=== PATIENT | male | born 1990 | race Caucasian/White ===

== ENCOUNTER 2019-06-14 09:44 | Emergency (ER) | payer BC, SELFPAY ==
[2019-06-14 09:45] VITALS: BP 138/74; PULSE 103; RESP 18; TEMP 36.4; O2SAT 98; BMI 26.1
--- NOTE | 2019-06-14 10:05 | RAD_ITS ---
STUDY: X-RAY - LEFT ANKLE REASON FOR EXAM: Male, 29 years old. Swelling following a twisting injury. TECHNIQUE: 3 view(s) of the ankle. COMPARISON: None. FINDINGS: Normal visualized distal tibia and fibula. Normal medial and lateral malleoli. Normal tibiotalar articulation and ankle mortise. Normal visualized talus and calcaneus. The visualized subtalar, talonavicular, calcaneocuboid and tarsal articulations are normal. Marked degree of soft tissue swelling overlying the lateral malleolus. RAD/Ankle min 3 Views IMPRESSION: Marked degree of soft tissue swelling overlying the lateral malleolus. Electronically Signed: Julio Cesar Rabago, at 10:43 EST , Service support ,
--- NOTE | 2019-06-14 10:05 | RAD_ITS ---
STUDY: X-RAY - LEFT FOOT CLINICAL: Male, 29 years old. Swelling following a twisting injury. TECHNIQUE: 3 view(s) of the foot. COMPARISON: None. FINDINGS: Normal talus, calcaneus, and tarsal bones. Normal visualized subtalar, talonavicular, calcaneocuboid, tarsal and tarsometatarsal articulations. Normal metatarsi. Normal metatarsophalangeal joint of the great toe. Normal tibial and fibular sesamoid bones. Normal interphalangeal joint of the great toe. Normal phalanges of the great toe. Normal second through fifth metatarsophalangeal joints. Normal interphalangeal joints and phalanges of the lesser toes. Marked degree of bilateral soft tissue swelling. RAD/Foot min 3 Views IMPRESSION: Marked degree of lateral soft tissue swelling. Electronically Signed: Julio Cesar Rabago, at 10:45 EST , Service support ,
--- NOTE | 2019-06-14 10:06 | ED.VIS.LOWEX ---
History of Present Illness Chief Complaint: Lower Extremity Injury Informant: Patient Occurred: Today Mechanism/Context: Injury, Fall Onset: Today Context: Sudden Onset Timing: Continuous Quality of Pain: Aching Narrative: Patient is a 29-year-old male with history of sprain ankle presenting with left ankle pain. Patient states he was playing basketball about an hour prior to arrival when he came down from a jump shot. When he came down he landed on another player's foot and leg inverted his ankle. He immediately had a lot of swelling and pain. He has not been able to weight-bear since. He has been using crutches that he had at home. He denies any other injuries. He denies hitting his head. He does note that whenever he gets injuries he tends to get very large hematomas and bruises. He is unaware of any family history or personal history of any clotting/bleeding disorders. Past Medical History - Allergies and Home Meds Allergies/Adverse Reactions: Allergies amoxicillin Allergy (Verified 06/14/19 09:47) Rash Penicillins Allergy (Verified 06/14/19 09:47) Rash Primary Care Physician: Paul Dunbar MD [Primary Care Provider] - Past Medical History: None Surgical History: noncontributory Review of Systems General: Denies: Chills, Fever, Sweats Eyes: Denies: Visual changes - bilaterally, Diplopia ENT: Denies: Rhinorrhea, Sore throat Cardiovascular: Denies: Chest pain, Palpitations Respiratory: Denies: Dyspnea, Cough, Dyspnea on exertion Gastrointestinal: Denies: Abdominal pain, Nausea, Vomiting, Diarrhea, Melena, Hematochezia Genitourinary: Denies: Dysuria, Hematuria, Frequency Musculoskeletal: Reports: Swelling, Extremity Pain - left ankle . Denies: Back pain Skin: Denies: Rash, Wounds Neurological: Denies: Headache, Weakness, Numbness Physical Exam Vital Signs/Narrative: Vital Signs Temp Pulse Resp BP Pulse Ox 06/14/19 09:45 97.6 F L 103 H 18 138/74 H 98 Inital Vital Signs reviewed: Yes - Extremity Exam Left Tib Fib: Edema, - - No fibular head tenderness, edema of the distal anterior lower leg. Negative for: Deformity Left Ankle: Edema, Limited ROM, - - Significant soft tissue swelling localized over the lateral malleolus as well as anterior lateral foot, no obvious deformity. Tenderness to palpation diffusely over the lateral aspect. No obvious bony tenderness.. Negative for: Abrasion, Contusion, Deformity Left Foot: Edema, - - Soft tissue swelling and edema as well as early ecchymosis forming over the proximal and lateral foot. Tenderness palpation over this area but no pinpoint tenderness over the head of the fifth metatarsal. Negative for: Contusion, Deformity Diagnostic/Tx/Re-eval Clinical Impression(s) from Imaging Studies Ankle X-Ray 06/14/19 10:05 IMPRESSION: Marked degree of soft tissue swelling overlying the lateral malleolus. Electronically Signed: Julio Cesar Gem, at 10:43 EST , Service support , Foot X-Ray 06/14/19 10:05 IMPRESSION: Marked degree of lateral soft tissue swelling. Electronically Signed: Julio Cesar Rabago, at 10:45 EST , Service support , - Medical Decision Making Patient sustained injury to his left ankle. He has a lot of soft tissues swelling but no obvious bony deformity. X-ray does not show any acute fracture. Likely this is a sprain. Patient has crutches to use. He is placed in a soft wrap for swelling as well as an air stirrup. He is not working until Monday. He is counseled to take NSAIDs as needed for pain and inflammation. He is counseled on rice therapy. He is neurovascular intact. Patient is counseled on signs and symptoms requiring return to the emergency room. Patient verbalizes agreement and understand this plan. Patient discharged home in stable and improved condition. ED Disposition - Plan for ED Patient: Disposition: Home or Assisted Living Diagnosis: Left ankle sprain Instructions: Sprain, Ankle, with X-Ray Prescriptions: Ibuprofen [Motrin] 600 mg PO Q6H PRN PRN #20 tab PRN Reason: Pain/Inflammation Prescription Printed Referrals: Paul Dunbar MD [Primary Care Provider] - Additional Instructions: Continue to rest, elevate the leg and use compression/ice for swelling and pain. If no significant improvement by Monday, follow-up with your primary care doctor. Return if you have significantly worsening symptoms or pain.
[2019-06-14] MEDS: Ibuprofen 600 MG Tablet PO (10:14)
[2019-06-14 11:56] VITALS: BP 129/71; PULSE 80; RESP 16; O2SAT 98
== END 2019-06-14 12:04 | disposition home or self-care (01) ==
PROVIDERS: Emergency Provider Emergency Medicine; Family Provider Family Medicine; PCP Family Medicine
DX: S93.402A Sprain of unspecified ligament of left ankle, initial encounter (principal); X50.1XXA Overexertion from prolonged static or awkward postures, initial encounter; Y93.67 Activity, basketball; Y99.8 Other external cause status
CPT/HCPCS: 73610; 73630; 99282

== ENCOUNTER → 2020-02-11 13:46 | Outpatient (CLI) | payer BC, SELFPAY ==
[2020-02-11 13:41] VITALS: BMI 26.1
--- NOTE | 2020-02-11 13:46 | RAD_ITS ---
STUDY: X-RAY - RIGHT HAND REASON FOR EXAM: Male, 30 years old. RIGHT HAND CONTUSION, PAIN ACROSS MC TECHNIQUE: 3 view(s) of the hand. COMPARISON: None. FINDINGS: Normal radiocarpal articulation. Normal distal radioulnar joint. Normal visualized carpal bones. Normal carpal articulations Normal carpometacarpal articulation of the thumb. Normal second through fifth carpometacarpal joints. Normal metacarpi. Normal metacarpophalangeal joint of the thumb. Normal interphalangeal joint of the thumb. Normal proximal and distal phalanges of the thumb. Normal metacarpophalangeal joints of the second through fifth fingers. Normal proximal and distal interphalangeal joints of the second through fifth fingers. Normal phalanges of the second through fifth fingers. Soft tissue swelling. RAD/Hand Min 3 Views IMPRESSION: Soft tissue swelling. Electronically Signed: Julio Cesar Rabago, at 14:44 EDT , Service support ,
--- NOTE | 2020-02-11 14:14 | RAD_ITS ---
STUDY: X-RAY - RIGHT WRIST REASON FOR EXAM: Male, 30 years old. PAIN LATERAL WRIST, SMASHING INJURY TECHNIQUE: 4 view(s) of the wrist were obtained including a navicular view. COMPARISON: None. FINDINGS: Normal visualized distal radius and ulna. Normal radiocarpal articulation. Normal distal radioulnar articulation. Normal carpal bones. Normal carpal articulations. Normal carpometacarpal articulation of the thumb. Normal second through fifth carpometacarpal articulations. Normal visualized metacarpal bones. The soft tissue structures are unremarkable. RAD/Wrist min 3 Views IMPRESSION: Normal x-ray examination of the wrist. Electronically Signed: Julio Cesar Rabago, at 14:43 EDT , Service support ,
== END ==
PROVIDERS: PCP Family Medicine; Referring Provider Physician Assistant Surgical; Visit Provider Physician Assistant Surgical
DX: S60.221A Contusion of right hand, initial encounter (principal)
CPT/HCPCS: 73110; 73130

== ENCOUNTER 2020-07-31 09:00 | Outpatient (RCR) | payer OTHER, SELFPAY ==
[2020-07-06 09:39] VITALS: BMI 27.6
--- NOTE | 2020-07-10 09:56 | HP.PTEVAL_ITS ---
Patient's Visit Information SERGIO PAREDES is a 30 year old M referred to Physical Therapy by ALEXSANDRA Dye with a diagnosis of R knee pain, strain. Date of Evaluation: 07/10/20 Physical Therapist: Camron Vázquez DPT - Visit Plan Frequency: 3x /Week Duration: 4 Weeks Plan: 1)Start with ROM, including heel slides, manual over pressure, and biking. 2) add in quad, glute, HS isometrics progressing to isokinetics as tolerated. 3)May use Slovak stim to quad to increase activition, or IFC for pain control. 4) Once pain and ROM have improved start to activiating gait progresion and fucntional strengthening in minimal painful enviornments. - Subjective Pt. is here today for his initial evaluation with diagnosis of R knee pain. Initial injury occured on Jun 15 when she slipped on wet leaving on a hill hyper extended his knee. He might have felt a pop. He reports his injury caused a good deal of swelling. Pain does wakin him up and night if he rolls on it. He has been doing a lot less since injury. He is still off work currently. Denies N/T in his LLE. 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 Pt. walks door to door working from 11 to 7 daily. Hobbies- athletics, sports id basketball. Pt. is hopeful to reduce pain in order to get back to all recreational activities without limitations. - Pain Medial R knee Pain Intensity (Out of 10): 4 Pain Intensity Range: 1, 6 Comment: increases with walking. - Objective POSTURE: Pt. wears a knee brace, L sided wt. shifting. Pt. has normal knee positioning in stance, except for his wt. shifting. PALPATION: Pt. is very tender over his MCL and medial joint line. No pain at lateral aspect of his knee. Pt. has some posterior medial knee pain as well. NEURO: Normal sensation throughout. ROM: L knee - 0-1-65deg. increased medial knee pain during flexion and end range extension. MMT: Pt. has marked weakness throughout RLE, He has difficult activiating his quad for a quad set, has ~10deg of extensor lag with attempt with a SLR. GAIT: Pt. ambulates with lacking TKE and minimal knee no knee flexion during swing phase. Pt. has marked antalgic pattern during R stance phase. - Special Tests R Knee Laurent - Meniscus: Positive R Knee Valgus - MCL: Positive Comments: Patient was very gaurded during ACL testing this date, hard to determine - Goals Goal 1:: LTG: Pt. to be I with HEP. Goal Time Frame: 4-6 Weeks Goal 2:: STG: Pt. to sleep throughout the night without increase in symptoms. Goal Time Frame: 2 Weeks Goal 3:: STG: Pt. to have increased R knee ROM to 0-0-125deg. without increase in symptoms. Goal Time Frame: 2 Weeks Goal 4:: LTG: Pt. to walk without increase in symptoms for unlimited distances with normalized gait pattern. Goal Time Frame: 4-6 Weeks Goal 5:: STG: Pt. to complete SLR x20 without extensor lag of RLE, indicating increased RLE quad activation. Goal Time Frame: 2 Weeks Goal 6:: LTG: Pt. to have increased RLE strength increased to full throughout. Goal Time Frame: 4-6 Weeks - Rehabilitation Potential Physical Therapy Diagnosis: Pt. has signs and symptoms consistent with R knee pain after slipping down a hill on wet leaves. Pt. had a valgus knee twisting and felt a pop during this motion. Pt. now has subsequent hypombilioty, increased swelling, decreased quad strength and decreased tolerance to all standing and walking. He would benefit from PT to work the above limitations with attempts of restoring his motion amf proigressing back to work related activities. Rehabilitation Potential: Excellent - Anticipated Interventions Patient/Client Instruction: Educate patient on: Condition, Plan of Care, Risk Factors, Benefits of Fitness Program For the Purpose of:: To improve decision making, To facilitate caregiver knowledge, To improve self management, To prevent re-injury, To improve ability to perform tasks related to life management, To improve tolerance to ADL's Therapeutic Exercise to Include: Strength training, Power training, Endurance training, Body mechanics, Postural training, Flexibilty training, Gait and locomotor training, Passive ROM, Active ROM For the Purpose of:: To decrease pain, To decrease swelling/inflammation, To increase ROM, To improve nutrient delivery to tissue, To increase oxygenation perfusion, To improve muscle performance and motor function, To improve ability to perform ADL's, To increase tolerance to activity/condition/position, To improve performance and independence with ADL's, To improve health of tissue, To decrease soft tissue restriction, To increase flexibility/ROM, To improve endurance, To improve balance Manual Therapy Techniques to Include: Mobilization, Passive ROM, Soft tissue mobilization For the Purpose of:: To decrease pain, To decrease swelling/inflammation, To increase ROM, To improve nutrient delivery to tissue, To improve health of tissue, To decrease soft tissue restriction, To increase flexibility/ROM IF ES: Yes Other electric stimulation: Yes - [place] citizen Cryotherapy (ice pack, ice massage): Yes Vasopneumatic device: Yes For the Purpose of:: To decrease pain, To decrease swelling/inflammation, To increase ROM, To improve nutrient delivery to tissue Thank you for the opportunity to evaluate your patient. For Medicare and Medicare HMO plans, please review the plan of care and approve it. It will need to be FAXED BACK to us at [phone] for Medicare purposes. For Medicare only, by signing this I certify the plan of care. Please let me know if there are questions or concerns regarding this plan of care. Physician Signature: Date:
--- NOTE | 2020-07-16 16:04 | HP.PTREVAL ---
ALEXSANDRA Dye, It has been my pleasure to treat SERGIO PAREDES over the last 2 visits for R knee pain, strain. Please see the progress note below for an update on the physical therapy plan of care! Subjective: Pt. reports being HEP compliant with exercises at home. Pt. is wearing his brace and does have some relief with use of his brace. Objective/Function: Pt. tolerated PT this date. He still feel like his knee gets stuck/blocked at ~80deg of knee flexion. This did improve with ROM on the bike today. He is still very sore with all mobility and WBing. Pt. follow up with physician next week. Due to mech of injury and blocking feeling he recieves with bending his knee, he might have some meniscal involvement. Plan Plan: 1)Start with ROM, including heel slides, manual over pressure, and biking. 2) add in quad, glute, HS isometrics progressing to isokinetics as tolerated. 3)May use Citizen Of [place] stim to quad to increase activition, or IFC for pain control. 4) Once pain and ROM have improved start to activiating gait progresion and fucntional strengthening in minimal painful enviornments. Goals Goal 1:: LTG: Pt. to be I with HEP. Goal Time Frame: 4-6 Weeks Goal 2:: STG: Pt. to sleep throughout the night without increase in symptoms. Goal Time Frame: 2 Weeks Goal 3:: STG: Pt. to have increased R knee ROM to 0-0-125deg. without increase in symptoms. Goal Time Frame: 2 Weeks Goal 4:: LTG: Pt. to walk without increase in symptoms for unlimited distances with normalized gait pattern. Goal Time Frame: 4-6 Weeks Goal 5:: STG: Pt. to complete SLR x20 without extensor lag of RLE, indicating increased RLE quad activation. Goal Time Frame: 2 Weeks Goal 6:: LTG: Pt. to have increased RLE strength increased to full throughout. Goal Time Frame: 4-6 Weeks Anticipated Interventions Patient/Client Instruction: Educate patient on: Condition, Plan of Care, Risk Factors, Benefits of Fitness Program For the Purpose of:: To improve decision making, To facilitate caregiver knowledge, To improve self management, To prevent re-injury, To improve ability to perform tasks related to life management, To improve tolerance to ADL's Therapeutic Exercise to Include: Strength training, Power training, Endurance training, Body mechanics, Postural training, Flexibilty training, Gait and locomotor training, Passive ROM, Active ROM For the Purpose of:: To decrease pain, To decrease swelling/inflammation, To increase ROM, To improve nutrient delivery to tissue, To increase oxygenation perfusion, To improve muscle performance and motor function, To improve ability to perform ADL's, To increase tolerance to activity/condition/position, To improve performance and independence with ADL's, To improve health of tissue, To decrease soft tissue restriction, To increase flexibility/ROM, To improve endurance, To improve balance Manual Therapy Techniques to Include: Mobilization, Passive ROM, Soft tissue mobilization For the Purpose of:: To decrease pain, To decrease swelling/inflammation, To increase ROM, To improve nutrient delivery to tissue, To improve health of tissue, To decrease soft tissue restriction, To increase flexibility/ROM IF ES: Yes Other electric stimulation: Yes - [place] Cryotherapy (ice pack, ice massage): Yes Vasopneumatic device: Yes For the Purpose of:: To decrease pain, To decrease swelling/inflammation, To increase ROM, To improve nutrient delivery to tissue Please do not hesitate to contact me at [phone] by phone or if you have questions or concerns regarding this new plan of care! Sincerely, Camron Vázquez DPT
--- NOTE | 2020-07-31 09:32 | HP.PTREVAL ---
ALEXSANDRA Dye, It has been my pleasure to treat SERGIO PAREDES over the last 4 visits for R knee pain, strain. Please see the progress note below for an update on the physical therapy plan of care! Subjective: Pt. arrives today. He has not been here in ~2 weeks. He reports he was doing a lot of exercises at home in the mean time. He reports overall doing better, but is stil having some medial knee soreness causing him to walk with a limp. Objective/Function: ROM: 0-0-120deg PROM, ARM 0-4-115deg. MMT: 4+/5 throughout, mild increase in symptom with knee flexion/extension testing. GAIT: Pt. walks with brace on, but does have lack of knee flexion during swing phase. Pt. has improved since last time I saw him. He reports begin diligent with all exercises at home. He still has knee pain during increeased flexion and wtih WBing exercises. He is to follow up with physician later this date. Plan Plan: 1)Start with ROM, including heel slides, manual over pressure, and biking. 2) add in quad, glute, HS isometrics progressing to isokinetics as tolerated. 3)May use [place] stim to quad to increase activition, or IFC for pain control. 4) Once pain and ROM have improved start to activiating gait progresion and fucntional strengthening in minimal painful enviornments. Goals Goal 1:: LTG: Pt. to be I with HEP. Goal Time Frame: 4-6 Weeks Goal Progress: Progressing Goal 2:: STG: Pt. to sleep throughout the night without increase in symptoms. Goal Time Frame: 2 Weeks Goal Progress: Goal Met Goal 3:: STG: Pt. to have increased R knee ROM to 0-0-125deg. without increase in symptoms. Goal Time Frame: 2 Weeks Goal Progress: Progressing Goal 4:: LTG: Pt. to walk without increase in symptoms for unlimited distances with normalized gait pattern. Goal Time Frame: 4-6 Weeks Goal Progress: Progressing Goal 5:: STG: Pt. to complete SLR x20 without extensor lag of RLE, indicating increased RLE quad activation. Goal Time Frame: 2 Weeks Goal Progress: Goal Met Goal 6:: LTG: Pt. to have increased RLE strength increased to full throughout. Goal Time Frame: 4-6 Weeks Goal Progress: Progressing Anticipated Interventions Patient/Client Instruction: Educate patient on: Condition, Plan of Care, Risk Factors, Benefits of Fitness Program For the Purpose of:: To improve decision making, To facilitate caregiver knowledge, To improve self management, To prevent re-injury, To improve ability to perform tasks related to life management, To improve tolerance to ADL's Therapeutic Exercise to Include: Strength training, Power training, Endurance training, Body mechanics, Postural training, Flexibilty training, Gait and locomotor training, Passive ROM, Active ROM For the Purpose of:: To decrease pain, To decrease swelling/inflammation, To increase ROM, To improve nutrient delivery to tissue, To increase oxygenation perfusion, To improve muscle performance and motor function, To improve ability to perform ADL's, To increase tolerance to activity/condition/position, To improve performance and independence with ADL's, To improve health of tissue, To decrease soft tissue restriction, To increase flexibility/ROM, To improve endurance, To improve balance Manual Therapy Techniques to Include: Mobilization, Passive ROM, Soft tissue mobilization For the Purpose of:: To decrease pain, To decrease swelling/inflammation, To increase ROM, To improve nutrient delivery to tissue, To improve health of tissue, To decrease soft tissue restriction, To increase flexibility/ROM IF ES: Yes Other electric stimulation: Yes - [place] Cryotherapy (ice pack, ice massage): Yes Vasopneumatic device: Yes For the Purpose of:: To decrease pain, To decrease swelling/inflammation, To increase ROM, To improve nutrient delivery to tissue Please do not hesitate to contact me at [phone] by phone or if you have questions or concerns regarding this new plan of care! Sincerely, Camron Vázquez DPT
== END 2020-07-31 19:00 | disposition home or self-care (01) ==
LOC: PT 09:00
PROVIDERS: PCP Family Medicine; Referring Provider Physician Assistant Surgical; Visit Provider Physician Assistant Surgical
DX: S83.91XD Sprain of unspecified site of right knee, subsequent encounter (principal)
CPT/HCPCS: 97014; 97110; 97161; 97164; G0283

== ENCOUNTER → 2020-08-07 17:42 | Outpatient (CLI) | payer OTHER, SELFPAY ==
[2020-07-17 14:07] VITALS: BMI 28.2
--- NOTE | 2020-08-07 17:44 | MRI_ITS ---
MRI EXAMINATION OF THERight KNEE COMPARISON: None TECHNIQUE: Sagittal proton density and fat-suppressed T2, coronal proton density fat suppressed T2 and oblique thin T2 and axial fat-suppressed T2 # of images including paperwork:198 FINDINGS: Bones: No acute fracture. No significant marrow edema. Ligaments and tendons: Partial chronic appearing tear of the anterior cruciate ligament at the femoral attachment. No associated edema. The posterior cruciate ligament is intact. The medial and lateral collateral ligament, iliotibial band, biceps femoris tendon and popliteus tendon are intact. Extensor mechanism: The quadriceps tendon and patellar tendon are intact. Medial and lateral retinaculum are intact there is edema that is seen within Hoffa's fat pad at the central inferior portion. This can be seen with prior trauma and shearing injury. This is most marked at the inferior lateral aspect of the patellar fat pad. No bowing of the patellar tendon is noted. Knee joint: Minimal joint effusion. No popliteal cyst. No loose bodies are noted Medial compartment: No evidence of a meniscal tear. No full-thickness articular cartilage loss. Cartilage is relatively preserved. Lateral compartment: No labral tear. Slight thinning of the articular cartilage at the weightbearing portion of the lateral femoral condyle with no full-thickness losses noted. Patellofemoral articulation: The articular cartilage of the patella and the trochlea is intact. MRI/Lower Ext Joint Only (Routine) IMPRESSION: Minimal edema within Hoffa's fat pad as discussed. This is most marked at the inferior lateral aspect Chronic appearing partial tear of the anterior cruciate ligament at the femoral attachment. No associated edema. Minimal joint effusion Slight thinning of the lateral femoral articular cartilage weightbearing portion at 2210 Reported and signed by: Vonda Cotton DO Electronically Signed: Vonda Cotton DO at 22:09 EST Tel , Service support ,
== END ==
PROVIDERS: PCP Family Medicine; Referring Provider Physician Assistant Surgical; Visit Provider Physician Assistant Surgical
DX: S83.91XA Sprain of unspecified site of right knee, initial encounter (principal)
CPT/HCPCS: 73721

== ENCOUNTER 2021-09-29 16:58 | Emergency (ER) | payer OTHER, SELFPAY ==
[2021-09-29 16:59] VITALS: BP 143/78; PULSE 78; RESP 18; TEMP 36.6; O2SAT 98; BMI 25.5
--- NOTE | 2021-09-29 17:18 | CT_ITS ---
STUDY: CT BRAIN WITHOUT CONTRAST REASON FOR EXAM: Male, 31 years old. headaches TECHNIQUE: Transaxial CT imaging of the brain was performed without administration of intravenous contrast material. Individualized dose optimization techniques were used for this CT. COMPARISON: None FINDINGS: Normal calvarium. Normal soft tissues. Normal size ventricles and extra-axial spaces for the patient''s age. Normal white matter tracts of the cerebral hemispheres. Normal basal ganglia and thalami. Normal brainstem. Normal cerebellum. There is no intracranial hemorrhage. There are no findings of an acute ischemic infarction. Normal visualized paranasal sinuses. ASPECTS 10 CT/Brain/Head without Contrast IMPRESSION: There are no acute intracranial findings. Electronically Signed: Tuan Izaguirre MD at 18:26 EDT ,
--- NOTE | 2021-09-29 17:20 | EX.ED.DYSGE1 ---
HPI History of Present Illness Chief Complaint: Headache Detail of Chief Complaint: Not feeling well for about 2 months Informant: patient Narrative Narrative: Patient presents to the emergency department complaint not feeling well for the last 2 months. Patient has multiple vague symptoms and describes intermittent headaches as well as chills. He has a minimal cough. Patient had a bloody nose x6 today and has been getting frequent bloody noses over the last 2 months. Patient currently rates his headache as a 5 out of 10. No nausea or vomiting. No diarrhea. Denies sore throat. His sister has history of migraines. He himself typically does not get headaches. Prior similar symptoms: No PFSH PFSH Home Medications NK 02/11/20 [History Last Taken Unknown] Allergy/AdvReac Type Severity Reaction Status Date / Time amoxicillin Allergy Rash Verified 09/29/21 16:59 Penicillins Allergy Rash Verified 09/29/21 16:59 Social History (Updated 07/31/20 @ 10:11 by Ben UPTON, PA) Smoking Status: Never smoker ROS ROS ED Constitutional Constitutional ED: Reports systems reviewed and no addt'l complaints, except as documented and chills; Denies body ache(s) or change in weight Eyes Eyes: Denies acute decrease in peripheral vision, change in vision, double vision or loss of vision ENT ENT ED: Reports none; Denies ear pain, lip swelling, loss taste/smell, neck pain, otalgia or sore throat Cardiovascular Cardiovascular: Reports none; Denies abdominal pain, chest pain with activity, leg edema, lightheadedness, palpitations, rapid heart rate or syncope Respiratory/Chest Respiratory/Chest: Reports none; Denies change in mental status, dry cough, dyspnea, hemoptysis, shortness of breath at rest or shortness of breath with exertion Gastrointestinal Gastrointestinal: Reports none; Denies abdominal pain, change in stool character, diarrhea, hematemesis, hematochezia, melena, rectal bleeding or vomiting Genitourinary Genitourinary ED: Reports none; Denies abdominal discomfort, anuria, dysuria, genital pain or polyuria Musculoskeletal Musculoskeletal: Reports none; Denies arthralgias, back pain, difficulty walking, extremity pain, muscle weakness or myalgias Integumentary Reports none; Denies abscess or rash Neurologic Neurologic: Reports none and headache(s); Denies abnormal gait, confusion, focal weakness, frequent falls, loss of vision, numbness, paresthesias, radicular pain, vertigo or weakness Psychiatric Psychiatric: Reports systems reviewed and no addt'l complaints, except as documented and none; Denies behavioral changes, confusion, difficulty concentrating, hallucinations, suicidal ideation, tactile hallucinations or visual hallucinations Endocrine Endocrinology: Denies none, cold intolerance, excessive sweating, fatigue or heat intolerance Hematologic/Lymphatic Hematologic/Lymphatic: Reports none; Denies anemia, easy bleeding or easy bruising Allergic/Immunologic Allergic/Immunologic ED: Denies as per HPI, none, lip swelling, mouth swelling, throat swelling, tongue swelling or hives EXAM Physical Exam Const Vital Signs: 09/29/21 16:59 Temperature 98 F Temperature Source Temporal Pulse Rate 78 Respiratory Rate 18 Blood Pressure 143/78 H Blood Pressure Mean 99 Pulse Ox 98 Oxygen Delivery Method Room Air Positive well nourished and well developed General Appearance ED: well developed and NAD HEENT Reports TM's clear and moist mucous membranes HEENT Narrative: Evaluation of the left nasal vault does reveal a scab on the left anterior septum with no active bleeding. normocephalic and atraumatic; Negative for trauma or tenderness Tympanic Membrane ED: Yes TM's clear Eyes PERRL and EOMs intact bilaterally General Eye ED: Negative for pale conjunctiva or scleral icterus Neck no lymphadenopathy, supple and no JVD General: Negative for tenderness Chest Wall inspection of chest normal and palpation of chest normal Chest: Negative for tenderness Resp normal respiratory effort and clear to auscultation bilaterally Effort and Inspection: Negative for respiratory distress or pain with movement Auscultation: Negative for rhonchi, wheezes or diminished lung sounds Cardio regular rate, regular rhythm, S1 normal heart sound, S2 normal heart sound and no murmurs Peripheral Pulses: pulses 2+ throughout GI normal to inspection, nondistended, normoactive bowel sounds, soft to palpation, non-tender, non-distended and no masses Back/Spine no CVA tenderness and no thoracic nor lumbar tenderness Extremity normal to inspection General Extremety ED: Negative for edema General Extremity: Negative for edema Neuro oriented x3, CN's II-XII intact bilaterally, no sensory deficits noted and gait normal Neuro Narrative: Finger-nose and heel quan testing within normal limits, negative Romberg, negative pronator drift, fundi benign Sensorium / Orientation: awake, alert, oriented to person, oriented to place and oriented to time Motor Exam: strength 5/5 throughout and strength abnormal Psych mental status grossly normal Skin no rashes or lesions noted and no wounds MDM MDM MDM Narrative Medical decision making narrative: IV line established. Patient was given Toradol 15 mg IV. Patient's headache resolved. Patient had a CT of the brain without contrast that was unremarkable this was done because of the unusual headaches over prolonged amount of time of 2 months. Patient also had a Covid test that was negative. At this point etiology of symptoms unclear. Patient advised to follow-up with his primary care physician 5 to 7 days. Lab Data Attestation: I reviewed the patient's lab results. Labs: Laboratory Results - last 24 hr 09/29/21 09/29/21 17:30 17:30 WBC 7.0 RBC 4.69 Hgb 14.1 Hct 39.6 L MCV 84.4 MCH 30.1 MCHC 35.6 RDW Std Deviation 36.3 RDW Coeff of Ashley 11.9 Plt Count 302 MPV 8.6 Immature Gran % (Auto) 0.300 Neut % (Auto) 70.6 H Lymph % (Auto) 19.1 Pitkin % (Auto) 9.0 Eos % (Auto) 0.4 Baso % (Auto) 0.6 Absolute Neuts (auto) 5.0 Absolute Lymphs (auto) 1.34 Nucleated RBC % 0 Sodium 136 Potassium 3.8 Chloride 103 Carbon Dioxide 29.0 Anion Gap 4 L BUN 11 Creatinine 1.17 Estim Creat Clear Calc 93.16 Est GFR (MDRD) Af Amer 94 Est GFR (MDRD) Non-Af 78 BUN/Creatinine Ratio 9.4 L Glucose 102 Calcium 9.3 Radiography Diagnostic Testing: Clinical Impression(s) from Imaging Studies Brain CT 09/29/21 17:18 IMPRESSION: There are no acute intracranial findings. Electronically Signed: Tuan Izaguirre MD at 18:26 EDT , Discharge Plan Triage Chief Complaint: Headache Other Complaint: Eye Problem ED Provider: Khoa Quintero Dx/Rx/DC Orders Clinical Impression: Headache, Epistaxis Instructions: ED Epistaxis (Adult), ED Headache Unspecified Prescriptions: No Action NK RF: 0 Primary Care Provider: Paul Dunbar Referrals: Paul Dunbar MD [Primary Care Provider] - 5-7 Days Disposition Disposition: Home, Self Care
[2021-09-29] MEDS: Ketorolac 15 MG/ML Vial IV (17:36)
[2021-09-29 17:40] LABS: Absolute Lymphocyte Count 1.34 X10^3/uL (0.83-4.51); Basophil# 0.04 X10^3/uL; Basophil% 0.6 % (0-1); Eosinophil# 0.03 X10^3/uL; Eosinophils% 0.4 % (0-5); Hematocrit 39.6 % (40-54); Hemoglobin 14.1 g/dL (13.0-16.5); Lymphocyte # 1.34 X10^3/ul (0.83-4.51); Lymphocyte % 19.1 % (19-41); Mean Corp Hgb Conc 35.6 g/dL (32-36); Mean Corpuscular Hgb 30.1 pg (27.0-32.0); Mean Corpuscular Volume 84.4 fL (80-94); Mean Platelet Vol. 8.6 fl (6.2-12.0); Monocyte# 0.63 X10^3/uL; NRBC Flagged by Analyzer 0 % (0-5); Neutrophil # 4.97 X10^3/uL (2.7-7.7); Neutrophil % 70.6 % (47-70); Platelet Count 302 K/mm3 (150-450); RBC Distribution Width CV 11.9 % (11.6-14.6); RBC Distribution Width SD 36.3 fl (35.1-43.9); Red Blood Count 4.69 M/mm3 (4.6-6.2)
[2021-09-29 18:00] LABS: Anion Gap 4 (5-15); BUN 11 mg/dL (7-18); BUN/Creat Ratio 9.4 RATIO (10-20); Calcium,Total 9.3 mg/dL (8.5-10.1); Chloride 103 mmol/L (98-107); Creatinine, Serum 1.17 mg/dL (0.70-1.30); EST Glomerular Filtration Rate 78 mL/min (>60); Est Glom Filt Rate - Afr Amer 94 mL/min (>60); Estimated Creatinine Clearance 93.16 ml/min; Glucose 102 mg/dL (74-106); Potassium 3.8 mmol/L (3.5-5.1); Sodium Level 136 mmol/L (136-145)
[2021-09-29 19:16] VITALS: BP 133/73; PULSE 70; RESP 14; O2SAT 100
== END 2021-09-29 19:17 | disposition home or self-care (01) ==
PROVIDERS: Emergency Provider Emergency Medicine; PCP Family Medicine; Visit Provider Emergency Medicine
DX: R51.9 Headache, unspecified (principal); R04.0 Epistaxis
CPT/HCPCS: 70450; 80048; 85025; 87426; 96361; 96374; 99283; J7030; A4216

== ENCOUNTER 2022-04-18 21:20 | Emergency (ER) | payer BC, SELFPAY ==
[2022-04-18 21:21] VITALS: BP 140/84; PULSE 68; RESP 15; TEMP 36.7; O2SAT 100; BMI 25.9
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
[2022-04-18] MEDS: Naproxen 250 MG Tablet 500 MG PO (22:08)
== END 2022-04-18 22:12 | disposition home or self-care (01) ==
PROVIDERS: Emergency Provider Emergency Medicine; PCP Family Medicine; Visit Provider Emergency Medicine
DX: S20.212A Contusion of left front wall of thorax, initial encounter (principal); W50.0XXA Accidental hit or strike by another person, initial encounter; Y92.838 Other recreation area as the place of occurrence of the external cause
CPT/HCPCS: 99283